=== PATIENT | male | born 1930 | race Caucasian/White ===

== ENCOUNTER 2016-06-03 09:17 | Emergency (ER) | payer OTHER ==
[~2016-06-03] VITALS: Ht 182.9 cm; Wt 78.2 kg
[~2016-06-03 09:17] MED LIST: ASPIR 8181 M1 PO; CRESTOR40 MG PO; GEMFIBROZIL600 MG PO; HEARTBURN150 MG PO; HYDROCHLOROTH12.5 M1 PO; HYDROCHLOROTH12.5 M3 PO; LISINOPRIL2.5 MG PO; METOPROLOL SUCC25 MG; NIACIN PO
[2016-06-03] MEDS ORDERED: DELTASONE20 M1 PO (10:02)
[2016-06-03 10:18] VITALS: BP 132/72
== END 2016-06-03 10:24 | disposition home or self-care (01) ==
LOC: EME 09:17
DX: L30.9 Dermatitis, unspecified (principal); E11.9 Type 2 diabetes mellitus without complications; Z79.84 Long term (current) use of oral hypoglycemic drugs
CPT/HCPCS: 99281; 99283

== ENCOUNTER 2016-12-16 00:53 | Observation (INO) | payer OTHER ==
[~2016-12-16] VITALS: Ht 182.9 cm; Wt 74.1 kg
[~2016-12-16 00:53] MED LIST changes: +DELTASONE20 M1 PO
[2016-12-16 02:12] LABS: POINT-OF-CARE METER ID UU13113702
[2016-12-16 02:18] LABS: HEMATOCRIT 43.1 % (38.0-50.0); MCH 29.3 PG (29.0-34.0); MCHC 32.7 G/DL (30.0-36.0); MCV 89.6 FL (86-99); MEAN PLAT.VOLUME 9.9 uM^3 (9.0-12.4); PLATELET COUNT 240 K/uL (156-360); RBC DIS.WIDTH-CV 14.1 % (11.8-14.6); RBC DIS.WIDTH-SD 46.4 % (39-53); RED BLOOD COUNT 4.81 M/uL (4.00-5.50); WHITE BLOOD COUNT 9.1 K/uL (4.1-10.2)
[2016-12-16 02:23] LABS: INTER. NORMALIZED RATIO 1.2; PROTHROMBIN TIME 13.3 SEC (10.2-12.9)
[2016-12-16 02:29] LABS: CHLORIDE 108 mEq/L (99-109); SODIUM 142 mEq/L (136-147)
[2016-12-16 02:30] LABS: GLUCOSE 106 mg/dL (70-99)
[2016-12-16 02:32] LABS: ANION GAP 11 MEQ/L (2-14)
[2016-12-16 02:34] LABS: GFR ESTIMATE (CALCULATED) 56 mL/min/
[2016-12-16 02:35] LABS: UREA NITROGEN (BUN) 18 mg/dL (9-23)
[2016-12-16 05:55] VITALS: BP 185/79
[2016-12-16 07:30] VITALS: BP 157/71
[2016-12-16] MEDS ORDERED: METOPROLOL SUCC25 MG PO (08:24)
[2016-12-16] MEDS ORDERED: METFORMIN HCL500 M4 PO (08:24)
[2016-12-16] MEDS ORDERED: ATORVASTATIN CA40 MG PO (08:26)
[2016-12-16] MEDS ORDERED: AMLODIPINE BESY10 MG PO (08:27)
[2016-12-16 11:36] VITALS: BP 129/64
== END 2016-12-16 15:31 | disposition home or self-care (01) ==
LOC: EME 00:53 → EXP 00:53 → EDOF 04:50 → ENRESERV 04:51 → 5WEST 05:48
PROVIDERS: Physician Assistant
DX: T18.128A Food in esophagus causing other injury, initial encounter (principal); I10 Essential (primary) hypertension; E78.5 Hyperlipidemia, unspecified; F03.90 Unspecified dementia, unspecified severity, without behavioral disturbance, psychotic disturbance, mood disturbance, and anxiety; Z79.82 Long term (current) use of aspirin; Z85.46 Personal history of malignant neoplasm of prostate; Z92.3 Personal history of irradiation
CPT/HCPCS: 70360; 80048; 82948; 85027; 85610; 85730; 92526 GN; 92610 GN; 99281; 99285; G0378; G8996 GN CJ; G8997 GN CJ; G8998 GN CJ; J1644; J7030; S0028

== ENCOUNTER → 2017-01-24 | Outpatient (CLI) | payer OTHER ==
[~2017-01-24] MED LIST changes: +AMLODIPINE BESY10 MG PO; +ATORVASTATIN CA40 MG PO; +METFORMIN HCL500 M4 PO; +METOPROLOL SUCC25 MG PO
== END | disposition home or self-care (01) ==
DX: R13.12 Dysphagia, oropharyngeal phase (principal); K22.4 Dyskinesia of esophagus; Z87.01 Personal history of pneumonia (recurrent)
CPT/HCPCS: 92611 GN; G8996 GN; G8997 GN; G8998 GN